=== PATIENT | female | born 1955 | race Caucasian/White ===

== ENCOUNTER 2024-04-23 13:04 | Emergency (ER) | payer MEDICARE, OTHER ==
[~2024-04-23] VITALS: Ht 157.5 cm; Wt 95.3 kg
[2024-04-23 13:33] VITALS: BP 126/85; TEMP 98.4
[2024-04-23 14:18] VITALS: O2SAT 97
== END 2024-04-23 14:19 | disposition home or self-care (01) ==
LOC: ER 13:04
DX: M17.11 Unilateral primary osteoarthritis, right knee (principal); E11.9 Type 2 diabetes mellitus without complications; E78.00 Pure hypercholesterolemia, unspecified; I10 Essential (primary) hypertension; Z88.0 Allergy status to penicillin